=== PATIENT | female | born 1950 | race Caucasian/White ===

== ENCOUNTER 2022-07-23 09:18 | Outpatient (CLI) | payer MEDICARE | END 2022-07-23 09:19 | disposition critical access hospital (66) | LOC: EMS 09:18 | DX: R55 Syncope and collapse (principal); R42 Dizziness and giddiness; R61 Generalized hyperhidrosis; R11.2 Nausea with vomiting, unspecified | CPT/HCPCS: A0425; A0427 ==

== ENCOUNTER 2022-07-23 09:32 | Emergency (ER) | payer MEDICARE ==
[2022-07-23] MEDS ORDERED: MECLIZINE 12.5 MG TABLET PO STA (09:37)
--- NOTE | 2022-07-23 09:39 | ED Physician Documentation ---
PD HPI HEADACHE - Stated complaint Stated Complaint: SYNCOPAL EPISODE - History obtained from History obtained from: Patient, EMS - Additional information Additional information: 71-year-old woman with history of hypothyroidism, otherwise very healthy. She has a history of recurrent vertigo albeit rare that makes her very uncomfortable for 10 to 15 minutes at a time and then goes away. She had a similar episode this morning that started after getting up. But unlike prior episodes it is not going away rapidly. She feels best if she is laying with her right ear down and it gets worse if she moves her head. She denies any headache or strokelike symptoms such as weakness, numbness, slurred speech or confusion. She was quite nauseous with it and threw up and paramedics administered Zofran in route which has helped with the nausea. Review of Systems Constitutional: reports: Reviewed and negative Eyes: reports: Reviewed and negative Ears: reports: Reviewed and negative. denies: Loss of hearing, Drainage/discharge PD PAST MEDICAL HISTORY - Present Medications Home Medications: Ambulatory Orders Medication Instructions Recorded Confirmed Levothyroxine [Synthroid] 75 mcg PO QDAC 07/23/22 07/23/22 Meclizine HCl [Motion Sickness] 25 mg PO Q6H PRN #20 tablet 07/23/22 Ondansetron Odt [Zofran] 4 mg TL Q6H PRN #10 tablet 07/23/22 Propranolol [Inderal] 10 mg PO BID PRN 07/23/22 07/23/22 - Allergies Allergies/Adverse Reactions: Allergies Allergy/AdvReac Type Severity Reaction Status Date / Time No Known Drug Allergies Allergy Verified 07/23/22 09:45 PD ED PE NORMAL - Vitals Vital signs reviewed: Yes - General General: Alert and oriented X 3, Other (She appears uncomfortable and is laying in right lateral decubitus position.) - HEENT HEENT: PERRL, EOMI (With a suggestion of very mild nystagmus on rightward gaze.), Pharynx benign - Neck Neck: Supple, no meningeal sign, No bony TTP - Cardiac Cardiac: RRR, No murmur - Respiratory Respiratory: No respiratory distress, Clear bilaterally - Abdomen Abdomen: Normal bowel sounds, Soft, Non tender - Back Back: No CVA TTP, No spinal TTP - Neuro Neuro: Alert and oriented X 3, [employer] 2-12 intact, No motor deficit, No sensory deficit, Normal speech, Other (Does not tolerate [place]-Hallpike or Lily on initial arrival. Normal [id number] and [id number] testing.) Eye Opening: Spontaneous Motor: Obeys Commands Verbal: Oriented GCS Score: 15 Results - Vitals Vitals: Vital Signs - 24 hr 07/23/22 09:39 Temperature 35.8 C L Heart Rate 58 L Respiratory 16 Rate Blood Pressure 104/50 L O2 Saturation 100 Oxygen O2 Source Room air - Labs Labs: Laboratory Tests 07/23/22 07/23/22 10:04 10:04 WBC 6.9 RBC 3.62 L Hgb 12.2 Hct 35.2 L MCV 97.2 MCH 33.7 H MCHC 34.7 RDW 12.3 Plt Count 146 MPV 11.8 H Neut # (Auto) 4.5 Lymph # (Auto) 1.7 [place] # (Auto) 0.4 Eos # (Auto) 0.2 Baso # (Auto) 0.1 Absolute Nucleated RBC 0.00 Nucleated RBC % 0.0 Sodium 138 Potassium 3.7 Chloride 103 Carbon Dioxide 26 Anion Gap 9.0 BUN 21 H Creatinine 0.8 Estimated GFR (MDRD) 71 L Glucose 161 H Calcium 9.6 - Rads (name of study) CT of the head without contrast is normal. Radiology: EMP read contemporaneously PD MEDICAL DECISION MAKING - ED course ED course: 71-year-old woman presents with what sounds like peripheral vertigo which is a recurrent issue for her but this is her worst episode ever. She had received Zofran prior to arrival which helped with the nausea and then she was administered some meclizine here. Sent over of her head CT which was without acute findings. After review of the head CT, I went back in and reevaluated her around 10:20 A.m. I talked her through the Lily maneuver and we went to trial it but at this point she was asymptomatic with no recurrent vertigo. Departure - Departure Disposition: 01 Home, Self Care Clinical Impression: Vertigo Condition: Good Record reviewed to determine appropriate education?: Yes Instructions: ED Vertigo Unspecified Prescriptions: Meclizine HCl [Motion Sickness] 25 mg PO Q6H PRN #20 tablet PRN Reason: Dizziness Ondansetron Odt [Zofran] 4 mg TL Q6H PRN #10 tablet PRN Reason: Nausea / Vomiting Comments: You were seen today for peripheral vertigo. A head CT was done and unremarkable. After the administration of some meclizine and ondansetron you are symptom-free. Since this is a recurrent issue, I did print out instructions on the Lily maneuver should it happen again. Follow-up with your primary care physician, next available appointment. Return if worsening.
[2022-07-23 09:45] VITALS: BP 104/50
--- NOTE | 2022-07-23 10:06 | CT Report ---
PROCEDURE: HEAD WO INDICATIONS: vertigo TECHNIQUE: Noncontrast 4.5 mm thick angled axial sections acquired from the foramen magnum to the vertex. For r adiation dose reduction, the following was used: automated exposure control, adjustment of mA and/or kV according to patient size. COMPARISON: None. FINDINGS: Image quality: Excellent. CSF spaces: Basal cisterns are patent. No extra-axial fluid collections. Ventricles are normal in size and shape. Brain: No midline shift. No intracranial masses or hemorrhage. Rod-white matter interface is norm al. Age-appropriate brain parenchymal volume loss and chronic small vessel ischemic change can be se en. Skull and face: Calvarium and visualized facial bones are intact, without suspicious lesions. Sinuses: Visualized sinuses and mastoids are clear. IMPRESSION: Unremarkable noncontrast head CT for age, without a cause of vertigo identified. Reviewed by: Daniel Vasquez MD on 07/23/2022 9:05 AM [facility] Approved by: Daniel Vasquez MD on 07/23/2022 9:05 AM [facility] Station ID: [id number]
[2022-07-23 10:10] LABS: BASOPHILS # (AUTO) 0.1 10^3/uL (0.0-0.1); BASOPHILS % (AUTO) 0.7 %; EOSINOPHILS # (AUTO) 0.2 10^3/uL (0.0-0.7); EOSINOPHILS % (AUTO) 2.3 %; HCT - HEMATOCRIT 35.2 % (37.0-47.0); HGB - HEMOGLOBIN 12.2 g/dL (12.0-16.0); LYMPHOCYTES # (AUTO) 1.7 10^3/uL (1.5-3.5); LYMPHOCYTES % (AUTO) 25.2 %; MEAN CORPUSCULAR HEMOGLOBIN 33.7 pg (27.0-31.0); MEAN CORPUSCULAR HGB CONC 34.7 g/dL (32.0-36.0); MEAN CORPUSCULAR VOLUME 97.2 fL (81.0-99.0); MEAN PLATELET VOLUME 11.8 fL (7.9-10.8); MONOCYTES # (AUTO) 0.4 10^3/uL (0.0-1.0); MONOCYTES % (AUTO) 5.8 %; NEUTROPHILS # (AUTO) 4.5 10^3/uL (1.5-6.6); NEUTROPHILS % (AUTO) 65.7 %; PLT - PLATELET COUNT 146 10^3/uL (130-450); RED BLOOD COUNT 3.62 10^6/uL (4.20-5.40); RED CELL DISTRIBUTION WIDTH 12.3 % (12.0-15.0); WHITE BLOOD COUNT 6.9 x10^3/uL (4.8-10.8)
[2022-07-23 10:19] LABS: CALCIUM 9.6 mg/dL (8.5-10.3); CREATININE 0.8 mg/dL (0.4-1.0); POTASSIUM 3.7 mmol/L (3.5-5.0)
== END 2022-07-23 11:30 | disposition home or self-care (01) ==
LOC: ED 09:32
DX: R42 Dizziness and giddiness (principal)
CPT/HCPCS: 36415; 70450; 80048; 85025; 99284; A9270